=== PATIENT | male | born 1960 | race Caucasian/White ===

== ENCOUNTER 2019-01-16 01:14 | Inpatient (IN) | payer OTHER ==
[~2019-01-16] VITALS: Ht 172.7 cm; Wt 84.1 kg
[2019-01-16] MEDS ORDERED: MONT10TA2 PO (01:41)
[2019-01-16] MEDS ORDERED: OMEP-221 PO (01:41)
[2019-01-16] MEDS ORDERED: TREL1AER INH (01:41)
[2019-01-16] MEDS ORDERED: PROAAER10 INH (01:41)
[2019-01-16] MEDS ORDERED: ALL10TAB29 PO (01:41)
[2019-01-16] MEDS ORDERED: SIMV10TA2 PO (01:41)
[2019-01-16 01:43] LABS: BASO # 0.1 10^3/uL (0.0-0.2); BASO % 0.3 % (0.0-1.0); EOS # 0.3 10^3/uL (0.0-0.5); EOS % 1.4 % (0.0-3.0); HEMATOCRIT 45.5 % (42.0-52.0); HEMOGLOBIN 15.2 g/dl (13.5-17.5); LYMPH # 2.8 10^3/uL (1.5-5.0); LYMPH % 15.2 % (24.0-44.0); MEAN CORPUSCULAR HEMOGLOBIN 31.3 pg (27.0-33.0); MEAN CORPUSCULAR HGB CONC 33.4 g/dl (32.0-36.5); MEAN CORPUSCULAR VOLUME 93.8 fl (80.0-96.0); MONO # 0.9 10^3/uL (0.0-0.8); MONO % 5.1 % (0.0-5.0); NEUTROPHILS % 77.5 % (36.0-66.0); PLATELET COUNT, AUTOMATED 300 10^3/uL (150-450); RED BLOOD COUNT 4.85 10^6/uL (4.30-6.10); WHITE BLOOD COUNT 18.1 10^3/uL (4.0-10.0)
[2019-01-16] MEDS ORDERED: NS 1,000 ML IV ONE (02:00)
[2019-01-16] MEDS ORDERED: GI COCKTAIL 50ML BTL(HYOSCYAMINE/MAALOX/LIDOCAINE VISCOUS)(1:3:1) PO ONE (02:00)
[2019-01-16] MEDS ORDERED: METOCLOPRAMIDE INJ 10MG/2ML VIAL (J2765) IV ONE (02:00)
[2019-01-16] MEDS ORDERED: MORPHINE 4 MG/ML 1ML VIAL/SYRINGE (J2270) IV ONE ×2 (02:00→05:45)
[2019-01-16 02:11] LABS: ALBUMIN 4.1 GM/DL (3.2-5.2); ALT/SGPT 25 U/L (12-78); BILIRUBIN,DIRECT 0.1 MG/DL (0.0-0.2); BILIRUBIN,TOTAL 0.3 MG/DL (0.2-1.0); BLOOD UREA NITROGEN 17 MG/DL (7-18); CALCIUM LEVEL 8.5 MG/DL (8.5-10.1); CARBON DIOXIDE LEVEL 29 MEQ/L (21-32); CHLORIDE LEVEL 103 MEQ/L (98-107); CREATININE FOR GFR 1.13 MG/DL (0.70-1.30); GLOMERULAR FILTRATION RATE > 60.0 (>56); GLUCOSE, FASTING 175 MG/DL (70-100); LIPASE 55 U/L (73-393); POTASSIUM SERUM 3.9 MEQ/L (3.5-5.1); SODIUM LEVEL 139 MEQ/L (136-145); TOTAL PROTEIN 7.1 GM/DL (6.4-8.2)
[2019-01-16] MEDS ORDERED: HYDROMORPHONE HCL 0.5 MG/ 0.5 ML SYRINGE (J1170 PER 1) IV ONE (02:45)
[2019-01-16] MEDS ORDERED: ISOVUE-370 76% 100ML VIAL (Q9967) As Ordered ONE (02:45)
--- NOTE | 2019-01-16 04:06 | REPVR ---
PROCEDURE INFORMATION: Exam: CT Abdomen And Pelvis With Contrast Exam date and time: 01/16/2019 2:57 AM Clinical history: 58 years old, male; Abdominal pain; Epigastric TECHNIQUE: Imaging protocol: Computed tomography of the abdomen and pelvis with intravenous contrast. Radiation optimization: All CT scans at this facility use at least one of these dose optimization techniques: automated exposure control; mA and/or kV adjustment per patient size (includes targeted exams where dose is matched to clinical indication); or iterative reconstruction. Contrast material: ISOVUE 370; Contrast volume: 100 ml; Contrast route: IV; COMPARISON: No relevant prior studies available. FINDINGS: Liver: There are no focal liver lesions present. Gallbladder and bile ducts: Gallstones are present. No significant gallbladder wall thickening is seen, but there is subtle stranding adjacent to the gallbladder. There is no biliary ductal dilation. Pancreas: There is benign fatty infiltration of the pancreas, especially prominent in the head and body, less prominent in the tail. No pancreatic ductal dilation. Spleen: The spleen is normal. Adrenals: The adrenal glands are normal. Kidneys and ureters: The kidneys are unremarkable. There are no ureteral stones or hydronephrosis. Stomach and bowel: The small bowel appears unremarkable. There is diverticulosis throughout the colon, most prominent in the left colon.There is no dilation or thickening of the colon. Appendix: A normal appendix is identified. Intraperitoneal space: There is no evidence of free intraperitoneal or pelvic fluid. There is no free intraperitoneal air. Vasculature: The aorta demonstrates mild atherosclerotic calcification. Lymph nodes: No lymphadenopathy is seen. Bladder: The bladder is mostly collapsed. No bladder stones are identified. Reproductive: The prostate gland demonstrates nonspecific parenchymal calcifications. Bones/joints: Degenerative endplate changes are seen at multiple levels in the visualized spine. No suspicious osseous lesions. No acute fractures or dislocations. Soft tissues: Unremarkable. IMPRESSION: 1. Cholelithiasis. No significant gallbladder wall thickening appreciated, but there is subtle stranding adjacent to the gallbladder, which may be due to mild or early acute cholecystitis. 2. Diverticulosis but no evidence of acute diverticulitis. Electronically signed by: Chelsy Mcdermott On 01/16/2019 04:05:38 AM
[2019-01-16] MEDS ORDERED: MORPHINE 2 MG/ML 1ML VIAL (J2270) IV ONE (05:45)
[2019-01-16] MEDS ORDERED: metroNIDAZOLE 500 MG in IV 1 EA IV SCH (07:00)
[2019-01-16] MEDS ORDERED: ACETAMINOPHEN TAB 650MG DOSE (2X325MG) PO PRN (07:00)
[2019-01-16] MEDS ORDERED: MORPHINE 2 MG/ML 1ML VIAL (J2270) IV PRN (07:00)
[2019-01-16] MEDS ORDERED: PERCOCET 5MG/325MG TAB PO PRN (07:00)
[2019-01-16] MEDS ORDERED: MOM 30ML SUSPENSION UDC PO PRN (07:00)
[2019-01-16] MEDS ORDERED: ONDANSETRON 4MG/2ML VIAL (J2405) IV PRN (07:00)
--- NOTE | 2019-01-16 07:13 | HPEPDOC ---
General Surgery H&P Date of Admission Jan 16, 2019 Attending Physician: IMANI RUEDA MD History and Physical CHIEF COMPLAINT: abdominal pain HISTORY OF PRESENT ILLNESS: Patient presented himself to the ED at about 0140 this morning with sudden onset of severe epigastric abdominal pain that started roughly 10 pm the night before. Reports sudden onset of epigastric discomfort radiating to his back that made him quite comfortable. He was driving back from [employer] and they drove straight to the hospital. He denies any prior episodes of similar symptoms. This was accompanied by diaphoresis, nausea. He had one episode of vomiting when he got to the hospital. In the emergency room was noted to be very and comfortable and it took multiple doses of IV morphine and Dilaudid to get him comfortable. He was worked up was found to have evidence for large stones at the neck the gallbladder with beginning erythema/edema consistent with acute cholecystitis. ALLERGIES: Please see below. HOME MEDICATIONS: Please see below. PAST MEDICAL HISTORY: 1. hypertension 2. COPD 3. back pain. PAST SURGICAL HISTORY: 1. Endoscopy and Colonoscopy 2013 PERSONAL/SOCIAL HISTORY: Patient quit smoking in 2010. REVIEW OF SYSTEMS: GENERAL: Patient was in his usual state of health prior to this episode. HEENT: [Denies blurred vision and double vision. Denies ear symptoms. Denies hoarseness]. NECK: [Denies any neck pain]. CARDIOVASCULAR: [Denies chest pain and palpitations]. MUSCULOSKELETAL: [Denies arthralgias, back pain and thrombophlebitis]. SKIN: [Denies rash]. NEUROLOGIC: [Denies headache, stroke and transient ischemic attack]. PSYCHIATRIC: [Denies anxiety and depression]. ENDOCRINE: [Denies thyroid disease]. HEMATOLOGY/ONCOLOGY: [Denies any bleeding or clotting disorder]. HEART: [Denies any chest pains, palpitations, paroxysmal dyspnea, orthopnea]. PULMONARY: Patient diagnosed to have COPD which is well controlled with his current medications. Has not had a need for hospital visits for exacerbation of COPD.. GASTROINTESTINAL: [Denies rectal bleeding, family history of colon cancer, constipation, diarrhea, dysphagia, heartburn and jaundice]. GENITOURINARY: [Denies dysuria, frequency, hematuria and nocturia]. ENDOCRINE: [Denies polydipsia, polyphagia, polyuria, heat or cold intolerance]. INFECTIOUS: [Denies any recent upper respiratory tract infection, UTI, need for use of antibiotics]. NUTRITION: [Reports good appetite]. PHYSICAL EXAMINATION: VITAL SIGNS: Please see below. GENERAL APPEARANCE: At the time that I saw him, he appears to be more comfortable than how he was described by the emergency room physician. He reports just some lingering soreness but no longer having the severe discomfort. [Awake, alert, oriented]. HEENT: [Normocephalic, atraumatic. [place] palpebral conjunctivae. Anicteric sclerae. Lips moist]. CHEST: [No chest wall abnormalities. Normal respiratory motion/effort]. NECK: [Supple. No thyromegaly. No lymphadenopathies]. LUNGS: [Lung sounds are clear to auscultation bilaterally. No wheezing appreciated]. HEART: [No chest wall abnormalities. Heart rate and rhythm are regular with no murmurs]. ABDOMEN: Abdomen is mildly rounded, soft, nondistended. He still has some remaining mild tenderness over the right upper quadrant area with no rebound or guarding, negative for [place] sign. No umbilical herniations appreciated no surgical scars noted.. SKIN: [Warm, moist]. EXTREMITIES: [Extremities have no deformities. No edema identified]. NEUROLOGICAL: Awake, alert, oriented. ANCILLARIES: . LABORATORY DATA: Please see below. MICROBIOLOGY: Please see below. IMAGING: CT abdomen and pelvis 1. Cholelithiasis. No significant gallbladder wall thickening appreciated, but there is subtle stranding adjacent to the gallbladder, which may be due to mild or early acute cholecystitis. 2. Diverticulosis but no evidence of acute diverticulitis. IMPRESSION AND PLAN: Cholelithiasis with acute cholecystitis Patient symptoms and severity as well as with the presence of leukocytosis to 18,000 consistent with acute cholecystitis resulting from large stones stuck at the neck of his gallbladder. He seems to be much better now than on his presentation. I will keep him on antibiotics. Now that the acute pain is resolved a think we can progress him to clear liquids. I spoke to him about performing cholecystectomy during this admission as well as his other options which includes interval cholecystectomy. I discussed with him how the procedure is performed along as its risks and benefits including that of mild increased risk for bile duct injury, bleeding and conversion to open surgery when this is performed in the acute setting. Discussed the expected postoperative course. I'll schedule him for surgery on Thursday to be admitted to the regular cases. Patient has agreed to our plan. Vital Signs Vital Signs Date Time Temp Pulse Resp B/P (MAP) Pulse Ox O2 Delivery O2 Flow Rate FiO2 01/16/19 05:54 18 01/16/19 05:45 98.0 71 140/77 (98) 96 01/16/19 01:14 Room Air Laboratory Data Labs 24H Laboratory Tests 2 01/16/19 01:28: Immature Granulocyte % (Auto) 0.5, Neutrophils (%) (Auto) 77.5H, Lymphocytes (%) (Auto) 15.2L, Monocytes (%) (Auto) 5.1H, Eosinophils (%) (Auto) 1.4, Basophils (%) (Auto) 0.3, Neutrophils # (Auto) 14.0H, Lymphocytes # (Auto) 2.8, Monocytes # (Auto) 0.9H, Eosinophils # (Auto) 0.3, Basophils # (Auto) 0.1, Nucleated Red Blood Cells % (auto) 0.0, Anion Gap 7L, Glomerular Filtration Rate > 60.0, Lactic Acid Level 1.8, Calcium Level 8.5, Total Bilirubin 0.3, Direct Bilirubin 0.1, Aspartate Amino Transf (AST/SGOT) 15, Alanine Aminotransferase (ALT/SGPT) 25, Alkaline Phosphatase 67, Total Protein 7.1, Albumin 4.1, Albumin/Globulin Ratio 1.37, Lipase 55L 01/16/19 01:45: POC Glucose (Misc Panel) 191H, POC Sodium (Misc Panel) 139, POC Potassium (Misc Panel) 4.0, POC Chloride (Misc Panel) 103, POC Total CO2 (Misc Panel) 26.0, POC Blood Urea Nitrogen (Misc Panel 17, POC Ionized Calcium (Misc Panel) 4.4L, POC Creatinine (Misc Panel) 1.1, POC Hematocrit (Misc Panel) 43.0 01/16/19 02:47: Urine Color YELLOW, Urine Appearance HAZY, Urine pH 5.0, Urine Specific [place] 1.029, Urine Protein NEGATIVE, Urine Glucose (UA) NEGATIVE, Urine Ketones TRACEH, Urine Blood NEGATIVE, Urine Nitrite NEGATIVE, Urine Bilirubin NEGATIVE, Urine Urobilinogen 0.2, Urine Leukocyte Esterase NEGATIVE, Urine WBC (Auto) 3, Urine RBC (Auto) 2, Urine Hyaline Casts (Auto) 0, Urine Bacteria (Auto) NEGATIVE, Urine Squamous Epithelial Cells 0, Urine Mucus (Auto) SMALL, Urine Sperm (Auto) CBC/BMP Laboratory Tests 01/16/19 01:28 Home Medications Scheduled Cetirizine HCl (Cetirizine HCl) 10 Mg Tablet, 10 MG PO DAILY, (Reported) Fluticasone/Umeclidin/Vilanter (Trelegy Ellipta 100-62.5-25) 1 Each Blst.w.dev, 1 PUFF INH DAILY, (Reported) Montelukast Sodium (Montelukast Sodium) 10 Mg Tablet, 10 MG PO DAILY, (Reported) Omeprazole (Omeprazole) 40 Mg Capsule.dr, 40 MG PO DAILY, (Reported) Simvastatin (Simvastatin) 10 Mg Tablet, 10 MG PO QHS, (Reported) Scheduled PRN Albuterol Sulfate (Proair Hfa) 8.5 Gm Hfa.aer.ad, 2 PUFFS INH PRN PRN for SHORT NESS OF BREATH, (Reported) Allergies Coded Allergies: Penicillins (Verified Allergy, Unknown, unknown, 01/16/19) A-FIB/CHADSVASC A-FIB History Current/History of A-Fib/PAF?: No Current PO Anticoag Therapy: No IMANI RUEDA MD Jan 16, 2019 07:13
[2019-01-16] MEDS: PERCOCET 5MG/325MG TAB PO PRN (08:08)
--- NOTE | 2019-01-16 08:43 | ECGEPIP ---
[facility] - ED Test Date: 2019-01-16 Pat Name: JOYCE MURO Department: Room: - Gender: Male Image Archivist: cash : 1960 Requested By: JENNIFER MENSAH Order Number: [id number] Reading MD: Lara Barcenas Measurements Intervals [place] Rate: 66 P: 39 PA: 139 QRS: 44 QRSD: 84 T: 3 QT: 350 QTc: 368 Interpretive Statements SINUS RHYTHM MODERATE ST DEPRESSION No prior Electronically Signed on 01-16-2019 8:43:10 EST by Lara Barcenas
[2019-01-16 09:30] VITALS: BP 136/72
[2019-01-16] MEDS ORDERED: ALBUTEROL 90 MCG/ACT 8GM HFA INHALER INH PRN (10:00)
[2019-01-16] MEDS: CETIRIZINE (ZyrTEC) 10 MG TAB PO SCH (10:22)
[2019-01-16] MEDS: SENOKOT S TAB PO SCH ×2 (10:22→20:51)
[2019-01-16] MEDS: MONTELUKAST 10 MG TAB PO SCH (10:22)
[2019-01-16] MEDS: PANTOPRAZOLE 40MG INJ (PROTONIX) (C9113) IV SCH (10:22)
[2019-01-16] MEDS: CelecoXIB (CeleBREX) 100 MG CAP PO SCH ×2 (10:22→20:51)
[2019-01-16] MEDS: ENOXAPARIN 40 MG/0.4 ML SYRINGE (J1650) SC SCH (10:22)
[2019-01-16] MEDS: LR 1,000 ML IV SCH ×3 (10:23→23:00)
[2019-01-16] MEDS: LevoFLOXacin IV 500 MG in IV 1 EA IV SCH (10:23)
[2019-01-16 14:00] VITALS: BP 113/60
[2019-01-16] MEDS: metroNIDAZOLE 500 MG in IV 1 EA IV SCH (18:05)
[2019-01-16] MEDS: SIMVASTATIN 10 MG TAB PO SCH (20:51)
[2019-01-16 22:00] VITALS: BP 134/72
[2019-01-17] VITALS (9 sets, daily range): BP systolic 128–167; BP diastolic 63–81
[2019-01-17] MEDS: metroNIDAZOLE 500 MG in IV 1 EA IV SCH ×3 (02:11→18:30)
[2019-01-17] MEDS: LR 1,000 ML IV SCH ×4 (04:15→23:00)
[2019-01-17 06:11] LABS: BASO % 0.2 % (0.0-1.0); EOS # 0.1 10^3/uL (0.0-0.5); EOS % 0.3 % (0.0-3.0); HEMATOCRIT 36.1 % (42.0-52.0); LYMPH # 1.6 10^3/uL (1.5-5.0); LYMPH % 8.2 % (24.0-44.0); MEAN CORPUSCULAR HEMOGLOBIN 31.4 pg (27.0-33.0); MEAN CORPUSCULAR HGB CONC 33.2 g/dl (32.0-36.5); MEAN CORPUSCULAR VOLUME 94.5 fl (80.0-96.0); MONO # 1.3 10^3/uL (0.0-0.8); MONO % 6.8 % (0.0-5.0); PLATELET COUNT, AUTOMATED 230 10^3/uL (150-450); RED BLOOD COUNT 3.82 10^6/uL (4.30-6.10); WHITE BLOOD COUNT 19.1 10^3/uL (4.0-10.0)
[2019-01-17] MEDS: LevoFLOXacin IV 500 MG in IV 1 EA IV SCH (06:12)
[2019-01-17 06:41] LABS: ALBUMIN 2.8 GM/DL (3.2-5.2); ALT/SGPT 19 U/L (12-78); BLOOD UREA NITROGEN 15 MG/DL (7-18); CALCIUM LEVEL 8.3 MG/DL (8.5-10.1); CARBON DIOXIDE LEVEL 28 MEQ/L (21-32); CHLORIDE LEVEL 109 MEQ/L (98-107); CREATININE FOR GFR 0.91 MG/DL (0.70-1.30); GLOMERULAR FILTRATION RATE > 60.0 (>56); GLUCOSE, FASTING 136 MG/DL (70-100); POTASSIUM SERUM 3.7 MEQ/L (3.5-5.1); SODIUM LEVEL 141 MEQ/L (136-145); TOTAL PROTEIN 5.9 GM/DL (6.4-8.2)
[2019-01-17] MEDS ORDERED: BUPIVACAINE HCL 0.25% 30 ML VIAL As Ordered ONE (07:16)
[2019-01-17] MEDS ORDERED: LIDOCAINE 1% SDV INJ 30 ML VIAL As Ordered ONE (07:16)
[2019-01-17] MEDS ORDERED: dexameTHASONE 4 MG/ML 1ML VIAL (J1100) As Ordered ONE (07:54)
[2019-01-17] MEDS ORDERED: MIDAZOLAM INJ 2 MG/2 ML VIAL (J2250) As Ordered ONE (07:54)
[2019-01-17] MEDS ORDERED: LIDOCAINE 2% INJ 100 MG/5 ML SDV (FOR ANES.) As Ordered ONE (07:54)
[2019-01-17] MEDS ORDERED: fentaNYL 100 MCG/2 ML INJECTION (J3010) As Ordered ONE (07:54)
[2019-01-17] MEDS ORDERED: PROPOFOL 200 MG/20 ML VIAL As Ordered ONE (07:54)
[2019-01-17] MEDS ORDERED: HYDROmorphone HCL 2 MG/ML 1ML VIAL (J1170) As Ordered ONE (07:54)
[2019-01-17] MEDS ORDERED: ROCURONIUM BROMIDE 50 MG/5 ML VIAL As Ordered ONE (07:54)
[2019-01-17] MEDS ORDERED: ONDANSETRON 4MG/2ML VIAL (J2405) As Ordered ONE (08:07)
[2019-01-17] MEDS ORDERED: KETOROLAC 60 MG/2 ML VIAL (J1885) As Ordered ONE (08:39)
[2019-01-17] MEDS ORDERED: SUGAMMADEX SODIUM 500 MG/5 ML VIAL (BRIDION) As Ordered ONE (08:39)
--- NOTE | 2019-01-17 09:18 | ROOPDOC ---
[facility] Report Of Operation Report of Operation DATE OF PROCEDURE: 01/17/19 PREPROCEDURE DIAGNOSES: Acute Cholecystitis. POSTPROCEDURE DIAGNOSES: Gangrenous Cholecystitis. PROCEDURE: Laparoscopic Cholecystectomy. SURGEON: Gadiel Fairchild MD FOREST PATROLMAN: ANESTHESIA: General Anesthesia. ESTIMATED BLOOD LOSS: Approximately 40 mL. COMPLICATIONS: none. REMARKS: 58 M admitted through the ED recovery room nurse of 01/16/2019 with sudden onset of severe epigastric pain and discomfort the night prior. PROCEDURE NOTE: gangrenous multiple ischemic spots on the wall of the gallbladder including that of the posterior wall, multiple brittle gallstones of different sizes. I was able to dissect the hepatocystic triangle adequately and I feel we did get an adequate critical view of safety with part of the cystic plate dissected and cleaned off. (photodocumentation done). We had stones fall off during dissection of the posterior wall of the fundus. All visible stones were retrieved. Copious irrigation performed and a 19 sara drain was left at the gb fossa. DESCRIPTION OF PROCEDURE: Entry into the abdomen done through an incision above the umbilicus. Veress needle inserted and intra-abdominal insufflation done to a pressure of 15 mmHg. Using the same incision a 5 mm Visiport was placed under direct vision laparoscope. She was then placed on the reverse Trendelenburg position, her right side tilted up about 30 to further expose the gallbladder. 3 working ports were placed in their usual position including an 11 mm port at the epigastric area. The gallbladder was noted to be moderately distended, extending several centimeters off from the liver edge. Parts of the liver appears fatty replaced but still smooth in appearance. Fundus of gallbladder was grasped and the gallbladder elevated superiorly exposing the infundibulum neck to gallbladder. There were some small adhesions at the underside of the gallbladder which was easily lysed. The hepatocystic triangle was dissected both with [place] instrument and Bovie cautery. The cystic duct was identified as well as the cystic artery. They were both circumferentially dissected. The lower cystic plate was also dissected to free the posterior wall of the neck of the gb. The posterior wall of the neck of the gallbladder was likewise dissected free off the liver bed. The cystic artery was doubly clipped on both ends and divided. The rest of the past cystic triangle was freed up to further define the cystic duct. I milked the cystic duct to look for any palpable stones. The cystic duct was then also doubly clipped and both ends and divided. The proceeded taken off the gal lbladder after rest of the liver bed. Towards the middle portion of the posterior wall was quite adhered to the liver bed and I entered the gallbladder with small amount of spillage of bile and fragile stones which were retrieved. I proceeded with removing the rest of the gallbladder from the liver bed. There was some mild oozing at the middle off the liver bed as well as the lateral capsular edge of the gallbladder. This was controlled with Bovie cautery. Gallbladder was removed. On re-insufflation and we irrigated as we had some spillage of bile from the cholangiogram catheter insertion site. All visible bile irrigated and suctioned off until there was clear return. The bleeding portion of the liver was examined and noted good hemostasis at the end of the procedure. The clips were noted to be in place. The abdomen was then deflated. All ports were removed. The epigastric fascial defect repaired with 0 Vicryl in mattress fashion. All skin incisions closed with 4-0 Monocryl in subcuticular fashion Steri-Strips and gauze dressings and placed. Patient was then promptly awake and extubated and brought to the recovery room stable sponges and instruments verified to be correct . GADIEL FAIRCHILD MD Jan 17, 2019 09:18
[2019-01-17] MEDS ORDERED: PERCOCET 5MG/325MG TAB As Ordered ONE (09:54)
[2019-01-17] MEDS ORDERED: PERCOCET 5MG/325MG TAB PO PRN (10:00)
[2019-01-17] MEDS ORDERED: MORPHINE 10 MG/ML 1ML VIAL (J2270) IV PRN (10:00)
[2019-01-17] MEDS ORDERED: ONDANSETRON 4MG/2ML VIAL (J2405) IV PRN (10:00)
[2019-01-17] MEDS ORDERED: LR 1,000 ML IV SCH (10:00)
[2019-01-17] MEDS ORDERED: fentaNYL 100 MCG/2 ML INJECTION (J3010) IV PRN (10:00)
[2019-01-17] MEDS: PANTOPRAZOLE 40MG INJ (PROTONIX) (C9113) IV SCH (11:14)
[2019-01-17] MEDS: ENOXAPARIN 40 MG/0.4 ML SYRINGE (J1650) SC SCH (11:14)
[2019-01-17] MEDS: CelecoXIB (CeleBREX) 100 MG CAP PO SCH ×2 (11:14→20:18)
[2019-01-17] MEDS: SENOKOT S TAB PO SCH ×2 (11:14→20:18)
[2019-01-17] MEDS: CETIRIZINE (ZyrTEC) 10 MG TAB PO SCH (11:15)
[2019-01-17] MEDS: MONTELUKAST 10 MG TAB PO SCH (11:15)
[2019-01-17] MEDS: PERCOCET 5MG/325MG TAB PO PRN (12:49)
[2019-01-17] MEDS ORDERED: KETOROLAC 30 MG/ML VIAL (J1885) IV PRN (17:15)
[2019-01-17] MEDS: SIMVASTATIN 10 MG TAB PO SCH (20:18)
[2019-01-18 02:00] VITALS: BP 126/68
[2019-01-18] MEDS: metroNIDAZOLE 500 MG in IV 1 EA IV SCH ×3 (02:10→18:54)
[2019-01-18 06:00] VITALS: BP 120/86
[2019-01-18 06:03] LABS: BASO % 0.1 % (0.0-1.0); EOS % 0.1 % (0.0-3.0); HEMATOCRIT 34.9 % (42.0-52.0); HEMOGLOBIN 11.6 g/dl (13.5-17.5); LYMPH # 1.6 10^3/uL (1.5-5.0); LYMPH % 8.6 % (24.0-44.0); MEAN CORPUSCULAR HEMOGLOBIN 31.6 pg (27.0-33.0); MEAN CORPUSCULAR HGB CONC 33.2 g/dl (32.0-36.5); MEAN CORPUSCULAR VOLUME 95.1 fl (80.0-96.0); MONO # 1.2 10^3/uL (0.0-0.8); MONO % 6.2 % (0.0-5.0); NEUTROPHILS # 16.1 10^3/uL (1.5-8.5); NEUTROPHILS % 84.5 % (36.0-66.0); PLATELET COUNT, AUTOMATED 209 10^3/uL (150-450); RED BLOOD COUNT 3.67 10^6/uL (4.30-6.10)
[2019-01-18] MEDS: LevoFLOXacin IV 500 MG in IV 1 EA IV SCH (06:19)
[2019-01-18 06:34] LABS: ALBUMIN 2.7 GM/DL (3.2-5.2); ALT/SGPT 22 U/L (12-78); BILIRUBIN,TOTAL 0.7 MG/DL (0.2-1.0); BLOOD UREA NITROGEN 18 MG/DL (7-18); CALCIUM LEVEL 8.1 MG/DL (8.5-10.1); CARBON DIOXIDE LEVEL 29 MEQ/L (21-32); CHLORIDE LEVEL 106 MEQ/L (98-107); CREATININE FOR GFR 0.96 MG/DL (0.70-1.30); GLOMERULAR FILTRATION RATE > 60.0 (>56); GLUCOSE, FASTING 117 MG/DL (70-100); POTASSIUM SERUM 3.8 MEQ/L (3.5-5.1); SODIUM LEVEL 140 MEQ/L (136-145); TOTAL PROTEIN 5.6 GM/DL (6.4-8.2)
[2019-01-18] MEDS: PANTOPRAZOLE 40MG INJ (PROTONIX) (C9113) IV SCH (08:28)
[2019-01-18] MEDS: SENOKOT S TAB PO SCH ×2 (08:29→20:02)
[2019-01-18] MEDS: CETIRIZINE (ZyrTEC) 10 MG TAB PO SCH (08:29)
[2019-01-18] MEDS: ENOXAPARIN 40 MG/0.4 ML SYRINGE (J1650) SC SCH (08:29)
[2019-01-18] MEDS: CelecoXIB (CeleBREX) 100 MG CAP PO SCH ×2 (08:29→20:04)
[2019-01-18] MEDS: MONTELUKAST 10 MG TAB PO SCH (08:29)
[2019-01-18 10:00] VITALS: BP 124/84
--- NOTE | 2019-01-18 13:12 | IPNPDOC ---
Subjective General Date/Time Seen The patient was seen on 01/18/19 at 13:08. Subject Chief Complaint/History The patient is a 58-year-old male admitted with a reason for visit of Acute Cholecystitis Due To Biliary Calculus. Patient feeling well. He is tolerating diet. He has been afebrile postoperatively. He denies any nausea, vomiting, bloating. Current Medications Current Medications Current Medications Medications (Trade) Dose Ordered Sig/Tera Route PRN Reason Start Time Stop Time Status Last Admin Dose Admin Acetaminophen (Tylenol Tab) 650 mg Q4HP PRN PO MILD PAIN or TEMP > 101 01/16/19 07:00 Albuterol Sulfate (Proventil, Ventolin Hfa) 2 puff Q4H PRN INH SHORTNESS OF BREATH 01/16/19 10:00 Celecoxib (CeleBREX) 200 mg BID PO 01/16/19 09:00 01/18/19 08:29 Cetirizine HCl (ZyrTEC) 10 mg DAILY PO 01/16/19 09:00 01/18/19 08:29 Enoxaparin Sodium (Lovenox) 40 mg DAILY SC 01/16/19 09:00 01/18/19 08:29 Fentanyl Citrate (Sublimaze) 25 mcg Q5MP PRN IV PAIN LEVEL 5-10 01/17/19 10:00 01/17/19 11:00 DC Home Med (Med Rec Complete!) ASDIRECTED XX 01/16/19 06:00 01/16/19 05:48 DC Ketorolac Tromethamine (ToRADol) 30 mg Q6HP PRN IV PAIN 01/17/19 17:15 01/22/19 17:14 01/18/19 04:48 Lactated Ringer's 1,000 ml @ 100 mls/hr Q10H IV 01/17/19 10:00 01/17/19 11:00 DC Lactated Ringer's 1,000 ml @ 125 mls/hr Q8H IV 01/16/19 07:00 01/18/19 00:09 DC 01/17/19 15:40 Levofloxacin 500 mg/IV Miscellaneous Supplies 100 ml @ 100 mls/hr Q24H IV 01/16/19 07:00 01/18/19 06:19 Magnesium Hydroxide (Milk Of Magnesia) 30 ml DAILYPRN PRN PO CONSTIPATION 01/16/19 07:00 Metronidazole 500 mg/IV Miscellaneous Supplies 100 ml @ 100 mls/hr Q8H IV 01/16/19 07:00 01/16/19 14:40 DC 01/16/19 11:22 Metronidazole 500 mg/IV Miscellaneous Supplies 100 ml @ 100 mls/hr Q8H IV 01/16/19 19:00 01/18/19 12:37 Montelukast Sodium (Singulair) 10 mg DAILY PO 01/16/19 09:00 01/18/19 08:29 Morphine Sulfate (Morphine Sulfate Inj) 2 mg Q5MP PRN IV PAIN LEVEL 4-7 01/17/19 10:00 01/17/19 11:00 DC Morphine Sulfate (Morphine Sulfate Inj) 4 mg Q4H PRN IV SEVERE PAIN (PS 8-10) 01/16/19 07:00 Ondansetron HCl (ZOFRAN INJection) 4 mg Q4HP PRN IV NAUSEA OR VOMITING 01/17/19 10:00 01/17/19 11:00 DC Ondansetron HCl (ZOFRAN INJection) 4 mg Q6HP PRN IV NAUSEA OR VOMITING 01/16/19 07:00 Oxycodone/ Acetaminophen (Percocet 5mg/ 325mg Tablet) 1 tab ASDIRECTED PRN PO PAIN LEVEL 1-4 01/17/19 10:00 01/17/19 11:00 DC Oxycodone/ Acetaminophen (Percocet 5mg/ 325mg Tablet) 1 tab Q4H PRN PO MILD/MODERATE PAIN (PS 1-7) 01/16/19 07:00 01/17/19 10:05 Oxycodone/ Acetaminophen (Percocet 5mg/ 325mg Tablet) 2 tab Q6H PRN PO SEVERE PAIN (PS 8-10) 01/16/19 07:00 01/17/19 12:49 Pantoprazole Sodium (Protonix) 40 mg DAILY IV 01/16/19 09:00 01/18/19 08:28 Senna/Docusate Sodium (Senokot S) 1 tab BID PO 01/16/19 09:00 01/18/19 08:29 Simvastatin (Zocor) 10 mg QHS PO 01/16/19 21:00 01/17/19 20:18 Allergies Coded Allergies: Penicillins (Verified Allergy, Unknown, unknown, 01/16/19) Objective Physical Examination Examination GENERAL APPEARANCE: Looks comfortable. SKIN: Warm and moist. HEENT: Normocephalic, atraumatic. [place] palpebral conjunctiva, anicteric sclerae. Lips and mucosa appear moist. NECK: Supple, no thyromegaly. No obvious jugular venous distention. LUNGS: Clear to auscultation bilaterally. No wheezing appreciated. HEART: No chest wall abnormalities. Regular rate and rhythm with no murmurs appreciated. ABDOMEN: Abdomen is nondistended, soft, nontender on palpation. Nitin-May drain is light pink serosanguineous fluid. Port site incisions are covered with dressings are clean, dry and intact. Nontender on palpation. EXTREMITIES: Extremities have no deformities. No edema identified. Vital Signs Vital Signs Date Time Temp Pulse Resp B/P (MAP) Pulse Ox O2 Delivery O2 Flow Rate FiO2 01/18/19 10:00 98.8 85 18 124/84 (97) 97 Room Air 01/18/19 06:00 1.0 I&Os I&O- Last 24 Hours up to 6 AM 01/18/19 06:00 Intake Total 3335 ml Output Total 1095 ml Balance 2240 ml Laboratory Data Labs 24H Laboratory Tests 2 01/18/19 05:25: Immature Granulocyte % (Auto) 0.5, Neutrophils (%) (Auto) 84.5H, Lymphocytes (%) (Auto) 8.6L, Monocytes (%) (Auto) 6.2H, Eosinophils (%) (Auto) 0.1, Basophils (%) (Auto) 0.1, Neutrophils # (Auto) 16.1H, Lymphocytes # (Auto) 1.6, Monocytes # (Auto) 1.2H, Eosinophils # (Auto) 0.0, Basophils # (Auto) 0.0, Nucleated Red Blood Cells % (auto) 0.0, Anion Gap 5L, Glomerular Filtration Rate > 60.0, Calcium Level 8.1L, Total Bilirubin 0.7, Aspartate Amino Transf (AST/SGOT) 15, A lanine Aminotransferase (ALT/SGPT) 22, Alkaline Phosphatase 48, Total Protein 5.6L, Albumin 2.7L, Albumin/Globulin Ratio 0.93L CBC/BMP Laboratory Tests 01/18/19 05:25 Impression Postop day 1 after laparoscopic cholecystectomy for severe acute cholecystitis Clinically improved and not showing any signs of sepsis though he still has significant leukocytosis. I left a Nitin-May drain and this is draining minimal amount of serous sanguinous fluid, no signs of bile leakage. I told him I will hold him for a day more to continue the IV antibiotics and expect the leukocytosis to start coming down. Most likely he'll be able to discontinue the drain tomorrow on discharge and he will need to be on oral antibiotics. Plan / VTE VTE Prophylaxis Ordered?: Yes IMANI RUEDA MD Jan 18, 2019 13:12
[2019-01-18 14:00] VITALS: BP 117/58
[2019-01-18] MEDS: SIMVASTATIN 10 MG TAB PO SCH (20:04)
[2019-01-18 22:00] VITALS: BP 122/68
[2019-01-19] MEDS: metroNIDAZOLE 500 MG in IV 1 EA IV SCH ×3 (01:57→18:09)
[2019-01-19 06:00] VITALS: BP 136/75
[2019-01-19] MEDS: LevoFLOXacin IV 500 MG in IV 1 EA IV SCH (06:21)
[2019-01-19 07:50] LABS: BASO % 0.3 % (0.0-1.0); EOS # 0.5 10^3/uL (0.0-0.5); EOS % 4.4 % (0.0-3.0); HEMATOCRIT 34.3 % (42.0-52.0); HEMOGLOBIN 11.4 g/dl (13.5-17.5); LYMPH # 1.8 10^3/uL (1.5-5.0); LYMPH % 16.8 % (24.0-44.0); MEAN CORPUSCULAR HEMOGLOBIN 31.3 pg (27.0-33.0); MEAN CORPUSCULAR HGB CONC 33.2 g/dl (32.0-36.5); MEAN CORPUSCULAR VOLUME 94.2 fl (80.0-96.0); MONO # 0.7 10^3/uL (0.0-0.8); MONO % 6.9 % (0.0-5.0); NEUTROPHILS # 7.4 10^3/uL (1.5-8.5); NEUTROPHILS % 71.3 % (36.0-66.0); PLATELET COUNT, AUTOMATED 234 10^3/uL (150-450); RED BLOOD COUNT 3.64 10^6/uL (4.30-6.10); WHITE BLOOD COUNT 10.4 10^3/uL (4.0-10.0)
[2019-01-19 08:15] LABS: ALBUMIN 2.7 GM/DL (3.2-5.2); ALT/SGPT 23 U/L (12-78); BILIRUBIN,TOTAL 0.3 MG/DL (0.2-1.0); BLOOD UREA NITROGEN 20 MG/DL (7-18); CALCIUM LEVEL 8.1 MG/DL (8.5-10.1); CARBON DIOXIDE LEVEL 29 MEQ/L (21-32); CHLORIDE LEVEL 110 MEQ/L (98-107); CREATININE FOR GFR 1.04 MG/DL (0.70-1.30); GLOMERULAR FILTRATION RATE > 60.0 (>56); GLUCOSE, FASTING 139 MG/DL (70-100); POTASSIUM SERUM 3.6 MEQ/L (3.5-5.1); SODIUM LEVEL 143 MEQ/L (136-145); TOTAL PROTEIN 5.6 GM/DL (6.4-8.2)
[2019-01-19] MEDS: ENOXAPARIN 40 MG/0.4 ML SYRINGE (J1650) SC SCH (08:33)
[2019-01-19] MEDS: PANTOPRAZOLE 40MG INJ (PROTONIX) (C9113) IV SCH (08:34)
[2019-01-19] MEDS: SENOKOT S TAB PO SCH (08:34)
[2019-01-19] MEDS: CelecoXIB (CeleBREX) 100 MG CAP PO SCH (08:34)
[2019-01-19] MEDS: MONTELUKAST 10 MG TAB PO SCH (08:34)
[2019-01-19] MEDS: CETIRIZINE (ZyrTEC) 10 MG TAB PO SCH (08:34)
[2019-01-19 14:00] VITALS: BP 128/72
[2019-01-19] MEDS ORDERED: LEVA1TAB2 PO (17:40)
--- NOTE | 2019-02-01 13:06 | DS.PDOC ---
Discharge Summary General Date of Admission Jan 16, 2019 at 07:00 Date of Discharge 01/19/2019 Attending Physician: IMANI RUEDA MD Discharge Summary PROCEDURES PERFORMED DURING STAY: Laparoscopic cholecystectomy. ADMITTING DIAGNOSES: 1. Acute cholecystitis. DISCHARGE DIAGNOSES: 1. Gangrenous acute cholecystitis status post laparoscopic cholecystectomy. COMPLICATIONS/CHIEF COMPLAINT: Acute Cholecystitis Due To Biliary Calculus. HISTORY OF PRESENT ILLNESS: Patient presented himself to the ED at about 0140 this morning with sudden onset of severe epigastric abdominal pain that started roughly 10 pm the night before. Reports sudden onset of epigastric discomfort radiating to his back that made him quite comfortable. He was driving back from [employer] and they drove straight to the hospital. He denies any prior episodes of similar symptoms. This was accompanied by diaphoresis, nausea. He had one episode of vomiting when he got to the hospital. In the emergency room was noted to be very and comfortable and it took multiple doses of IV morphine and Dilaudid to get him comfortable. He was worked up was found to have evidence for large stones at the neck the gallbladder with beginning erythema/edema consistent with acute cholecystitis. . HOSPITAL COURSE: Patient was seen in the emergency room. His symptoms were consistent with acute cholecystitis secondary to presence of gallstones. He was started on IV fluids, made nothing by mouth. I started him on IV antibiotics. He was given Levaquin and metronidazole IV. He was scheduled for laparoscopic cholecystectomy following day. He underwent laparoscopic cholecystectomy. His wound gangrenous but not perforated acute cholecystitis. He successfully had cholecystectomy laparoscopically. A drain was left in place for postoperative monitoring which was only putting out small amounts of serosanguineous fluid. This was discontinued on postop day 2 prior to his discharge. He was continued on his IV antibiotics. His leukocytosis gradually came down to 10.4 from as high as 19.1 preoperatively. He was started on clear liquids immediately postoperatively which was advanced to regular foods the following day. He was subsequently discharged on postop day 2 on Levaquin 500 mg daily for the next 7 days. His drain has been discontinued prior to his discharge. DISCHARGE MEDICATIONS: Please see below. ALLERGIES: Please see below. PHYSICAL EXAMINATION ON DISCHARGE: VITAL SIGNS: Please see below. GENERAL: Comfortable HEENT: Normocephalic, atraumatic, pink palpebral conjunctiva, anicteric sclerae NECK: Short, supple, no jugular venous distention CARDIOVASCULAR EXAMINATION: Regular heart rate and rhythm without murmurs RESPIRATORY EXAMINATION: Clear breath sounds auscultation bilaterally no wheezing ABDOMINAL EXAMINATION: Slightly rounded, soft, nondistended. Laparoscopic port sites are intact and healing and dry. The drain site is dry. SKIN: No signs of jaundice or skin rashes NEUROLOGICAL EXAMINATION: Awake, alert, oriented LABORATORY DATA: Please see below. IMAGING: CT abdomen and pelvis done on presentation to the emergency room 01/16/2019 PROGNOSIS: Good ACTIVITY: As tolerated. DIET: As tolerated DISCHARGE PLAN: Patient is discharged home on a seven-day course of Levaquin DISPOSITION: Home, Self-Care. DISCHARGE INSTRUCTIONS: 1. As above. 2. Follow-up with me in 2 weeks ITEMS TO FOLLOWUP ON ON OUTPATIENT: 1. Pathology results. DISCHARGE CONDITION: Stable. TIME SPENT ON DISCHARGE: Greater than 30 minutes. Discharge Medications Scheduled Cetirizine HCl (Cetirizine HCl) 10 Mg Tablet, 10 MG PO DAILY, (Reported) Fluticasone/Umeclidin/Vilanter (Trelegy Ellipta 100-62.5-25) 1 Each Blst.w.dev, 1 PUFF INH DAILY, (Reported) Levofloxacin (Levaquin) 500 Mg Tablet, 500 MG PO DAILY Montelukast Sodium (Montelukast Sodium) 10 Mg Tablet, 10 MG PO DAILY, (Reported) Omeprazole (Omeprazole) 40 Mg Capsule.dr, 40 MG PO DAILY, (Reported) Simvastatin (Simvastatin) 10 Mg Tablet, 10 MG PO QHS, (Reported) Scheduled PRN Albuterol Sulfate (Proair Hfa) 8.5 Gm Hfa.aer.ad, 2 PUFFS INH PRN PRN for SHORTNESS OF BREATH, (Reported) Allergies Coded Allergies: Penicillins (Verified Allergy, Unknown, unknown, 01/16/19) IMANI RUEDA MD Feb 01, 2019 13:06
== END 2019-01-19 18:26 | disposition home or self-care (01) | DRG 419 ==
LOC: M ED 01:14 → M ED INP 07:00 → M MSPAV 09:27
PROVIDERS: ADMIT Surgery; ATTEND Surgery
PROC: 0FT44ZZ Resection of Gallbladder, Percutaneous Endoscopic Approach (ICD-10-PCS; principal; 2019-01-17 07:30)
DX: K80.00 Calculus of gallbladder with acute cholecystitis without obstruction (principal); K82.A1 Gangrene of gallbladder in cholecystitis; I10 Essential (primary) hypertension; J44.9 Chronic obstructive pulmonary disease, unspecified; G89.29 Other chronic pain; M54.5 Low back pain; Z88.0 Allergy status to penicillin; Z79.899 Other long term (current) drug therapy; D72.829 Elevated white blood cell count, unspecified